=== PATIENT | female | born 1970 | race Caucasian/White ===

== ENCOUNTER 2017-06-27 08:36 | Emergency (ER) | payer OTHER ==
[~2017-06-27] VITALS: Ht 167.6 cm; Wt 56.7 kg
[2017-06-27] MEDS ORDERED: INVOKAMET 50-51 EACH (08:46)
== END 2017-06-27 15:11 | disposition home or self-care (01) ==
LOC: ER 08:36
DX: J06.9 Acute upper respiratory infection, unspecified (principal); N39.0 Urinary tract infection, site not specified; E11.9 Type 2 diabetes mellitus without complications